=== PATIENT | male | born 1960 | race Caucasian/White ===

== ENCOUNTER 2017-08-10 08:22 | Emergency (ER) | payer BC ==
--- NOTE | 2017-08-10 15:48 | RAD ---
RIGHT ANKLE THREE VIEWS: Date: 08-10-17 Comparison: None. FINDINGS: Marked soft tissue swelling is seen laterally. There are several bony fragments along the medial aspe ct of the medial malleolus that appears to be due to an old injury. The articular surfaces of the ank le joint are smooth. No large acute fracture was seen. There is some bony spurring from the dorsum of the navicular and of the anterior talas which are obviously old. A large calcaneal spur is present. There is ossification at the insertion of the Achilles tendon. IMPRESSION: 1. Acute lateral soft tissue swelling. 2. Old trauma to the medial malleolus. POS: HOME
--- NOTE | 2017-08-10 15:50 | RAD ---
RIGHT KNEE FOUR VIEWS: Date: 08-10-17 FINDINGS: There is a hairline fracture of the proximal fibular shaft with no displacement. It is best seen on t he lateral view. It involves the fibular neck and proximal shaft. Bony fragmentation from the anterio r tibial tubercal probably relates to old [place]-Schlatter's disease. Bony spurring at the insertion of the quadriceps tendon on the patella appears old. The joint space is normal in width. There are th e beginning of some very minor osteophytes medially. The joint space is not narrowed and there is no significant joint fluid. IMPRESSION: Hairline fracture of the proximal fibula. POS: HOME
== END 2017-08-10 09:28 | disposition home or self-care (01) ==
LOC: BURERS 08:22
DX: S82.831A Other fracture of upper and lower end of right fibula, initial encounter for closed fracture (principal); I10 Essential (primary) hypertension; W06.XXXA Fall from bed, initial encounter